=== PATIENT | male | born 1990 | race Caucasian/White ===

== ENCOUNTER 2016-10-29 14:21 | Emergency (ER) | payer SELFPAY ==
[2016-10-29 16:21] LABS: APPEARANCE,URINE CLEAR; BILIRUBIN,URINE NEGATIVE (NEGATIVE); GLUCOSE, URINE NEGATIVE (NEGATIVE); KETONES,URINE NEGATIVE (NEGATIVE); LEUKOCYTE ESTERASE,URINE NEGATIVE (NEGATIVE); NITRITE,URINE NEGATIVE (NEGATIVE); PROTEIN,URINE NEGATIVE (NEGATIVE); UROBILINOGEN,URINE NEGATIVE mg/dL (<2.0)
--- NOTE | 2016-10-29 16:52 | ER Document Report ---
HPI - HPI Patient complains to provider of: rash Pain Level: 3 Context: patient is a 26 year old male who presents to the ED with two concerns. Initial CC is rash on the right ankle. Was mowing the lawn 4 days ago in shorts and developed vesicular lesions over the anterior ankle on his left. has been using calamine, neosporin and hydogen peroxide. state. denies any motor dysfunction, itching sensaiton at the site. it has gotten worse over the past couple of days in terms of appearance but has not changed in size. no f/c/n/v/dizziness CC number 2 is to be screened for STD. Patient states his has recurrent discharge and pelvic pain on/off for 3 years but worse over the past 6 months. Was told by her OBGYN to come be screened. Denies pyuria, dysuria, urinary frequency, discharge, hematuria - CARDIOVASCULAR Cardiovascular: DENIES: Chest pain - REPRODUCTIVE Reproductive: DENIES: : - DERM Skin Color: Normal Past Medical History - Social History Smoking Status: Current Every Day Smoker Chew tobacco use (# tins/day): No Frequency of alcohol use: None Drug Abuse: None Family History: None - per pateint Patient has suicidal ideation: No Patient has homicidal ideation: No Pulmonary Medical History: Denies: Hx Tuberculosis Renal/ Medical History: Denies: Hx Peritoneal Dialysis Musculoskeltal Medical History: Reports Hx Muscle Weakness, Reports Hx Musculoskeletal Trauma Psychiatric Medical History: Reports: Hx Attention Deficit Hyperactivity Disorder Traumatic Medical History: Reports: Hx Fractures - wrist Past Surgical History: Reports: Hx Oral Surgery - wisdom teeth - Immunizations Immunizations up to date: Yes Hx Diphtheria, Pertussis, Tetanus Vaccination: Yes - 2013 Vertical Provider Document - CONSTITUTIONAL Agree With Documented VS: Yes Exam Limitations: No Limitations General Appearance: WD/WN, No Apparent Distress - INFECTION CONTROL TRAVEL OUTSIDE OF THE [place] IN LAST 30 DAYS: No - RESPIRATORY O2 Sat by Pulse Oximetry: 98 - CARDIOVASCULAR Pulses: Normal: Femoral - REPRODUCTIVE Male Genitalia: Normal Inspection Notes: no evidence of testicular or penile tenderness, cremasteric reflexes equal bilaterally, no evidence of discharge, erythema - MUSCULOSKELETAL/EXTREMETIES Musculoskeletal/Extremeties: MAEW, FROM, Non-Tender, No Edema. negative: Eccymosis - NEURO Level of Consciousness: Awake, Alert, Appropriate Motor/Sensory: No Motor Deficit, No Sensory Deficit - DERM Integumentary: Warm, Dry, Rash - vesicular lesions on red base without surrounding erythema, nontender, not hot Course - Re-evaluation Re-evalutation: 10/29/16 22:35 Patient is a 26-year-old male presents with contact dermatitis likely due to a plant on the left ankle. Will discharge patient home with a steroid pack. STD screening came back negative for trichomonas, chlamydia or gonorrhea. Patient stable for discharge home instruction to follow-up with primary care - Vital Signs Vital signs: Temp Pulse Resp BP Pulse Ox 97.8 F 73 18 122/82 98 10/29/16 14:43 10/29/16 14:43 10/29/16 14:43 10/29/16 14:43 10/29/16 14:43 - Laboratory Laboratory results interpreted by me: 10/29/16 14:58 Urine Ascorbic Acid 40 H Discharge - Discharge Clinical Impression: Rash Condition: Good Disposition: HOME, SELF-CARE Instructions: Contact Dermatitis ([facility]), Antihistamines ([facility]), Use of Over-The- Counter Ibuprofen ([facility]) Prescriptions: Methylprednisolone [Medrol Dosepack (4 mg/Tab) 21 Tab/Dosepak] 4 mg PO ASDIR PRN #21 tab.ds.pk PRN Reason: Referrals: DIEGO IRWIN DO [Primary Care Provider] - Follow up as needed
[2016-10-29 17:35] LABS: CHLAM PCR NOT DETECTED (NOT DETECT)
[2016-10-29 18:03] VITALS: BP 105/69
== END 2016-10-29 18:00 | disposition home or self-care (01) ==
LOC: ER 14:21
DX: R21 Rash and other nonspecific skin eruption (principal); M25.571 Pain in right ankle and joints of right foot; F17.200 Nicotine dependence, unspecified, uncomplicated
CPT/HCPCS: 36415; 81001; 86592; 87210; 87491; 87591; 99283

== ENCOUNTER 2018-04-02 08:43 | Emergency (ER) | payer MEDICAID ==
[2018-04-02 08:50] VITALS: BP 115/69
--- NOTE | 2018-04-02 09:33 | ER Document Report ---
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 allergic to poison oak. no sob or cp, no other area of rash - REPRODUCTIVE Reproductive: DENIES: : Past Medical History - Social History Smoking Status: Unknown if Ever Smoked Family History: None - per pateint, Reviewed & Not Pertinent Pulmonary Medical History: Denies: Hx Tuberculosis Renal/ Medical History: Denies: Hx Peritoneal Dialysis Musculoskeletal Medical History: Reports Hx Muscle Weakness, Reports Hx Musculoskeletal Trauma Psychiatric Medical History: Reports: Hx Attention Deficit Hyperactivity Disorder Traumatic Medical History: Reports: Hx Fractures - wrist Past Surgical History: Reports: Hx Oral Surgery - wisdom teeth - Immunizations Immunizations up to date: Yes Hx Diphtheria, Pertussis, Tetanus Vaccination: Yes - 2013 Vertical Provider Document - CONSTITUTIONAL Agree With Documented VS: Yes Exam Limitations: No Limitations - INFECTION CONTROL TRAVEL OUTSIDE OF THE [place] IN LAST 30 DAYS: No - HEENT Notes: PHYSICAL EXAMINATION: GENERAL: Well-appearing, well-nourished and in no acute distress. HEAD: Atraumatic, normocephalic. EYES: Pupils equal round and reactive to light, extraocular movements intact, sclera anicteric, conjunctiva are normal. ENT: Nares patent, oropharynx clear without exudates. Moist mucous membranes. NECK: Normal range of motion, supple without lymphadenopathy LUNGS: Breath sounds clear to auscultation bilaterally and equal. No wheezes rales or rhonchi. HEART: Regular rate and rhythm without murmurs ABDOMEN: Soft, nontender, nondistended abdomen. No guarding, no rebound. No masses appreciated. Musculoskeletal: Normal range of motion, no pitting or edema. No cyanosis. NEUROLOGICAL: Cranial nerves grossly intact. Normal speech, normal gait. Normal sensory, motor exams PSYCH: Normal mood, normal affect. SKIN: Warm, Dry, normal turgor, no rashes or lesions noted. Edema to right forearm with vesicles, linear Moran, leaf-like. No surrounding satellite lesions or burning noted. No induration, slight warmth to touch. Approximately 3 cm x 6 cm. Course - Re-evaluation Re-evalutation: 04/02/18 09:44 Afebrile, vitals stable. After performing a Medical Screening Examination, I estimate there is LOW risk for any life threatening rash. At this time the patient looks extremely well and there are no signs of systemic infection, however this may change at any time and the rash may change. I have reevaluated this patient multiple times and no significant life threatening changes are noted. The patient and I have discussed the diagnosis and risks, and we agree with discharging home with close follow-up with the understanding that symptoms and presentations can change. We also discussed returning to the Emergency Department immediately if new or worsening symptoms occur. We have discussed the symptoms which are most concerning (e.g., changing or worsening pain, fever, numbness, weakness, cool or painful digits) that necessitate immediate return. - Vital Signs Vital signs: Temp Pulse Resp BP Pulse Ox 97.7 F 62 16 115/69 100 04/02/18 08:49 04/02/18 08:49 04/02/18 08:49 04/02/18 08:49 04/02/18 08:49 Discharge - Discharge Clinical Impression: Contact dermatitis Qualifiers: Contact dermatitis type: unspecified Contact dermatitis trigger: unspecified trigger Qualified Code(s): L25.9 - Unspecified contact dermatitis, unspecified cause Condition: Good Disposition: HOME, SELF-CARE Instructions: Contact Dermatitis ([facility]) Additional Instructions: Return immediately for any new or worsening symptoms. Follow up with primary care provider, call tomorrow to make followup appointment. Prescriptions: Mupirocin Calcium [Bactroban] 15 gm TP TID #15 cream..g. Prednisone [Deltasone 20 mg Tablet] 3 tab PO DAILY 5 Days #20 tablet Triamcinolone Acetonide 30 gm TP BID #30 oint..gm. Referrals: DIEGO IRWIN DO [Primary Care Provider] - Follow up as needed
== END 2018-04-02 09:50 | disposition home or self-care (01) ==
LOC: ER 08:43
DX: L25.9 Unspecified contact dermatitis, unspecified cause (principal)
CPT/HCPCS: 99283

== ENCOUNTER 2019-02-08 06:27 | Emergency (ER) | payer MEDICAID ==
[2019-02-08] MEDS ORDERED: IBUPROFEN 800 MG TABLET PO ONE (07:08)
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
--- NOTE | 2019-02-08 07:23 | EKG REPORT ---
SEVERITY:- ABNORMAL ECG - SINUS RHYTHM NONSPECIFIC INTRAVENTRICULAR CONDUCTION DELAY : Confirmed by: Chang Díaz MD 08-Feb-2019 07:23:05
--- NOTE | 2019-02-08 07:56 | RADIOLOGY REPORT (SQ) ---
EXAM DESCRIPTION: XR CHEST 2 VIEWS COMPLETED DATE/TME: 02/08/2019 07:08 CLINICAL HISTORY: 28 years, Male, chest pain COMPARISON: 04/19/2014 NUMBER OF VIEWS: Two TECHNIQUE: Two views of the chest LIMITATIONS: None. FINDINGS: Lungs are clear. The heart is normal in size. There is no pneumothorax or pleural effusion. There is no acute fracture. IMPRESSION: No acute cardiopulmonary abnormality. copyright 2010 [employer]- All Rights Reserved
[2019-02-08 09:08] VITALS: BP 104/62
== END 2019-02-08 09:15 | disposition home or self-care (01) ==
LOC: ER 06:27
DX: S29.9XXA Unspecified injury of thorax, initial encounter (principal); R07.9 Chest pain, unspecified; V89.2XXA Person injured in unspecified motor-vehicle accident, traffic, initial encounter; F17.200 Nicotine dependence, unspecified, uncomplicated
CPT/HCPCS: 93005; 71046; 93010; J3490; 99285